=== PATIENT | male | born 1955 | race Caucasian/White ===

== ENCOUNTER → 2020-07-28 | Outpatient (CLI) | payer BC | END | disposition home or self-care (01) | LOC: LABPAT 12:52 | PROVIDERS: ATTEND Orthopaedic Surgery | DX: Z01.812 Encounter for preprocedural laboratory examination (principal) | CPT/HCPCS: 87070 ==

== ENCOUNTER 2020-08-03 10:59 | Day surgery (SDC) | payer BC ==
[2020-07-30 13:47] VITALS: BMI 35.7
--- NOTE | 2020-08-02 12:09 | HP ---
HISTORY AND PHYSICAL REASON FOR ADMISSION: Surgery 08/03/2020 Alfonso Nunes is a 64-year-old gentleman seen with symptomatic left knee osteoarthritis. We discussed options for treatment. He elected to proceed with left total knee arthroplasty. Consent was obtained. Medical clearance was provided by Dr. Rodriguez. Cardiac clearance was provided by Dr. Jeronimo. PAST MEDICAL HISTORY: Hypertension, cardiovascular disease. PAST SURGICAL HISTORY: Noncontributory. MEDICATIONS: Antihypertensive. ALLERGIES: None reported. SOCIAL HISTORY: He denies tobacco use. PHYSICAL EVALUATION OF THE LEFT KNEE: Range of motion is -2/3-120. Tenderness along the lateral joint line. Crepitus along the lateral patellofemoral compartments with range of motion. Pain with patellofemoral compression. Ligaments appear stable. Hip rotation without pain. Distal neurovascular exam is intact. Left knee radiographs revealed severe lateral, moderate patellofemoral compartment osteoarthritis. IMPRESSION: 1. Left knee osteoarthritis. 2. Hypertension. PLAN: Left total knee arthroplasty. Surgery 08/03/2020. MMODL / IJN: [id number] /
[~2020-08-03 10:59] MED LIST: ACETAMINOPHEN TAB 500 MG TAB PO PRN; HYDROmorphone 0.5 MG/0.5 ML SYRINGE IVP PRN; MELOXICAM 7.5 MG TAB PO PRN; ONDANSETRON 4 MG/2 ML VIAL IVP ONE; ROPIVACAINE/EPI/CLONIDINE/KET 50 ML SYRINGE MISCELLANE PRN; TRANEXAMIC ACID 1,000 MG in SODIUM CHLORIDE 0.9% 100 ML IVPB PRN
[2020-08-03] MEDS: LACTATED RINGERS 1,000 ML IV SCH ×2 (11:54→17:07)
[2020-08-03] MEDS ORDERED: DEXAMETHASONE SOD PHOSPHATE 4 MG/ML 1 ML VIAL IV ONE (12:03)
[2020-08-03] MEDS ORDERED: MIDAZOLAM 2 MG/2 ML VIAL IV ONE (12:27)
[2020-08-03] MEDS ORDERED: fentaNYL (PF) 50 MCG/ML 2 ML AMP IV ONE (12:27)
[2020-08-03] MEDS ORDERED: PROPOFOL 10 MG/ML 20 ML VIAL IV ONE (13:01)
[2020-08-03] MEDS ORDERED: KETAMINE 10 MG/ML 20 ML VIAL ONE (13:01)
[2020-08-03] MEDS ORDERED: MIDAZOLAM 2 MG/2 ML VIAL ONE (13:01)
[2020-08-03] MEDS ORDERED: SODIUM CHLORIDE 0.9% 100 ML BAG ONE (13:01)
[2020-08-03] MEDS ORDERED: ROPIVACAINE 5 MG/ML 30 ML VIAL ONE (13:01)
[2020-08-03] MEDS ORDERED: fentaNYL (PF) 50 MCG/ML 2 ML AMP ONE (13:01)
[2020-08-03] MEDS ORDERED: TRANEXAMIC ACID 1,000 MG/10 ML VIAL ONE (13:01)
[2020-08-03] MEDS ORDERED: ceFAZolin 1,000 MG in SODIUM CHLORIDE 0.9% 1,000 ML IRRIGATION ONE (13:34)
[2020-08-03] MEDS ORDERED: HYDROmorphone 1 MG/ML 1 ML SYRINGE IVP PRN (15:02)
[2020-08-03] MEDS ORDERED: HYDROmorphone 0.5 MG/0.5 ML SYRINGE IVP PRN (15:02)
[2020-08-03] MEDS ORDERED: HYDROcodone/APAP 5-325MG 1 EACH TAB PO PRN (15:02)
[2020-08-03] MEDS ORDERED: ONDANSETRON 4 MG/2 ML VIAL IVP PRN (15:02)
[2020-08-03] MEDS ORDERED: NALOXONE 0.4 MG/ML 1 ML VIAL IV PRN (15:02)
[2020-08-03] MEDS ORDERED: HYDROmorphone 0.2 MG/1 ML SYRINGE IVP PRN (15:02)
--- NOTE | 2020-08-03 15:02 | P.OP ---
Date of Procedure: 08/03/20 Preoperative Diagnosis: Left knee osteoarthritis Postoperative Diagnosis: Left knee osteoarthritis Procedure(s) Performed: Left total knee arthroplasty Implants: 1. Depuy attune size 7 left cruciate-retaining cemented femur 2. Depuy attune size 7 fixed-bearing cemented tibial baseplate 3. Depuy attune size 7 fixed-bearing cruciate retaining 5 mm polyethylene tibial insert 4. Depuy attune 41 mm all polyethylene cemented patella Anesthesia: regional (Adductor canal catheter, I pack block), spinal Surgeon: Ozzie Longo Skelp Processor #1: Burton Power Estimated Blood Loss (ml): 45 Pathology: other (bone) Condition: stable Disposition: PACU Indications for Procedure: 64-year-old patient seen with symptomatic left knee osteoarthritis. After treatment options were discussed, he elected to proceed with total knee ar throplasty. Operative Findings: see description of procedure Description of Procedure: Patient was taken to the operative suite after having an adductor canal catheter placed by the department of anesthesia as well as an I-pack block performed by the department of anesthesia for postoperative pain management. Patient underwent a spinal anesthetic by the department of anesthesia. Patient was given preoperative IV intake antibiotics and TXA. A well-padded tourniquet was placed about the left lower extremity. The lower extremity was then prepped and draped in the normal sterile orthopedic fashion. The extremity was elevated, a tourniquet was insufflated to 300. A standard anterior incision was made sharply through skin. Dissection was taken down through the subcutaneous soft tissues down to the extensor mechanism. A medial arthrotomy was performed, patella was everted and knee was flexed. There was advanced osteoarthritis noted. I introduced my distal intramedullary femoral drill. I then introduced the distal femoral cutting jig. Juan Manuel ESTRADA secured the cutting jig with 2 pins. I held retractors in position while Juan Manuel ESTRADA performed the distal femoral resection through the guide area we now removed her distal femoral cutting guide. We now placed our 4-in-1 femoral cutting block and positioned and it was secured with 2 pins by Juan Manuel ESTRADA while I held the block in position. The distal femoral finishing was now completed. A proximal tibial cutting guide was positioned. I held the guide in the appropriate position with both hands well Juan Manuel ESTRADA inserted stabilizing pins into the guide. Proximal tibial cut was made. We now placed a trial femoral component into position, along with an appropriate size tibial tray and insert. We now took the knee through range of motion and had full extension good flexion and good overall soft tissue balance noted. The patella was everted and stabilized with 2 towel clips held by Juan Manuel ESTRADA while I performed a flush with patellar quad tendon utilizing a fresh sawblade. We templated the patella, appropriate drill holes were made. An appropriate trial patella was positioned, knee was taken through full range of motion with the patella tracking very nicely. The trial patella was removed. Drill holes were made through the femoral component. All trial components were removed after marking off the appropriate rotation of the tibia. Retractors were now positioned along the proximal tibia. An appropriate keel punch was made with the appropriate size tibial guide by myself on Juan Manuel ESTRADA assisted by holding retractors. At this point appropriate size implants were chosen and opened. The joint was irrigated copiously with pulse lavage mechanical irrigation. The posterior capsule was infiltrated with local analgesic. The wound was irrigated with pulse lavage mechanical irrigation. We mixed antibiotic methylmethacrylate. We placed the knee into flexion. We placed multiple retractors assisted by Juan Manuel ESTRADA to expose the proximal tibia. Once the methyl methacrylate was ready, the tibial component was cemented into place removing any excess methylmethacrylate form by both myself and Juan Manuel ESTRADA. The femoral component was cemented into place removing the removing any excess methylmethacrylate performed by both myself and Juan Manuel ESTRADA. We then inserted the appropriate size polyethylene tibial insert. We made sure that it was locked into position. We took the knee into full extension, and then back in a flexion making sure we had removed any excess methylmethacrylate. The patellar component was then cemented down and secured with clamp. Excess methylmethacrylate removed. We kept the knee in full exten nora, patellar clamp in position until methylmethacrylate had hardened. Once it had hardened the patellar clamp was removed. The knee was taken through full range of motion. The patella tracked nicely. There was good soft tissue balancing. The tourniquet was now released. Additional hemostasis was achieved via electrocautery. A second gram of TXA was given. The wound again was irrigated with pulse lavage mechanical irrigation. The superficial soft tissues were infiltrated local analgesic. The extensor mechanism was repaired with Ethibond. We checked the repair with range of motion and it was stable. The subcutaneous soft tissues were repaired with Vicryl in layers. The skin was approximated with pernio/Dermabond. Sterile dressings were applied followed by loose web roll and Ned bandage. The patient was transferred to a bed, and taken to recovery in stable and satisfactory condition. Juan Manuel ESTRADA assisted with this complex procedure.
--- NOTE | 2020-08-03 15:17 | P.ANPRN ---
Procedure Note - Anesthesia - Nerve Block Performed Left Adductor Canal Infusion Time Out Performed: Yes (1225) Date of Procedure: 08/03/20 Procedure Start Time: 12:27 Procedure Stop Time: 12:32 Location of Patient: PreOp Indication: Acute Post-Operative Pain, Requested by Surgeon Specifically requested for management of pain by DrKamran: Ozzie Longo Sedation Type: Sedate with meaningful contact maintained Preparation: Sterile Prep Position: Supine Catheter Depth at Skin (cm): 9 Catheter: Indwelling Needle Types: Pajunk Needle Gauge: 21 Ultrasound used to visualize needle placement: Yes Ultrasound used to observe medication spread: Yes Injectate: 0.5% Ropivacaine (see comment for volume) (20cc) Blood Aspirated: No Pain Paresthesia on Injection Noted: No Resistance on Injection: Normal Image Stored and Saved: Yes Events: Uneventful and Well Tolerated Left iPack Single Time Out Performed: Yes (1225) Date of Procedure: 08/03/20 Procedure Start Time: 12:33 Procedure Stop Time: 12:37 Location of Patient: PreOp Indication: Acute Post-Operative Pain, Requested by Surgeon Specifically requested for management of pain by DrKamran: Ozzie Longo Sedation Type: Sedate with meaningful contact maintained Preparation: Sterile Prep Position: Supine Catheter: None Needle Types: Pajunk Needle Gauge: 21 Ultrasound used to visualize needle placement: Yes Ultrasound used to observe medication spread: Yes Injectate: 0.5% Ropivacaine (see comment for volume) (10cc + 10cc Nacl) Blood Aspirated: No Pain Paresthesia on Injection Noted: No Resistance on Injection: Normal Image Stored and Saved: Yes Events: Uneventful and Well Tolerated
[2020-08-03] MEDS ORDERED: ROPIVACAINE 0.2%-NS ON-Q PUMP 2 MG/ML EACH MISCELLANE ONE (15:20)
[2020-08-03] MEDS ORDERED: diphenhydrAMINE 50 MG/ML 1 ML VIAL IVP ONE ×2 (15:20)
[2020-08-03] MEDS: HYDROmorphone 1 MG/ML 1 ML SYRINGE IVP ONE ×2 (15:26→15:42)
--- NOTE | 2020-08-03 15:38 | XR ---
EXAMINATION TYPE: XR knee limited LT DATE OF EXAM: 08/03/2020 CLINICAL HISTORY: Left knee pain and arthritis status post total knee replacement. TECHNIQUE: Portable AP and crosstable lateral views of the left knee are obtained immediately postop eratively. COMPARISON: Outside left knee x-ray July 07, 2020. FINDINGS: Metallic hardware from total left knee arthroplasty is seen and appears satisfactory in al ignment and position. There is evidence of recent surgery with diffuse subcutaneous gas and soft tis pablo swelling noted. IMPRESSION: METALLIC HARDWARE FROM TOTAL LEFT KNEE ARTHROPLASTY IS SATISFACTORY IN ALIGNMENT.
[2020-08-03] MEDS ORDERED: SODIUM CHLORIDE 0.9% 1,000 ML IV ONE ×2 (15:52)
[2020-08-03] MEDS ORDERED: SENNOSIDES-DOCUSATE SODIUM 1 EACH TAB PO SCH (21:00)
[2020-08-03] MEDS: HYDROcodone/APAP 7.5-325MG 1 EACH TAB PO PRN (21:17)
[2020-08-04] MEDS: LACTATED RINGERS 1,000 ML IV SCH ×2 (01:59→09:11)
[2020-08-04] MEDS ORDERED: ENOXAPARIN 30 MG/0.3 ML SYRINGE SQ SCH (03:00)
[2020-08-04] MEDS: HYDROcodone/APAP 7.5-325MG 1 EACH TAB PO PRN ×2 (05:51→11:07)
[2020-08-04 08:14] VITALS: BP 114/73; PULSE 102; RESP 16; TEMP 98.5
[2020-08-04 10:25] LABS: Basophils # (A) 0.03 X 10*3/uL (0.00-0.10); Basophils % (A) 0.3 %; Eosinophils # (A) 0.02 X 10*3/uL (0.04-0.35); Eosinophils % (A) 0.2 %; HCT 42.6 % (39.6-50.0); HGB 14.3 g/dL (13.0-17.0); Lymphocytes # (A) 2.09 X 10*3/uL (0.90-5.00); Lymphocytes % (A) 17.7 %; MCH 31.4 pg (27.0-32.0); MCHC 33.6 g/dL (32.0-37.0); MCV 93.6 fL (80.0-97.0); Monocytes # (A) 1.28 X 10*3/uL (0.20-1.00); Monocytes % (A) 10.9 %; Neutrophils # (A) 8.33 X 10*3/uL (1.80-7.70); Neutrophils % (A) 70.6 %; Platelet Count 212 X 10*3/uL (140-440); RBC 4.55 X 10*6/uL (4.40-5.60); RDW 12.6 % (11.5-14.5); WBC 11.79 X 10*3/uL (4.50-10.00)
[2020-08-04 12:36] LABS: African American GFR (CKD) 82.4 (60.0-200.0); Albumin 3.9 g/dL (3.80-4.90); Albumin/Globulin Ratio 1.77 (1.60-3.17); Anion Gap 6.8 mmol/L (4.00-12.00); BUN/Creat Ratio 14.55 Ratio (12.00-20.00); Calcium 8.7 mg/dL (8.7-10.3); Carbon Dioxide 28.2 mmol/L (21.6-31.8); Globulin 2.2 g/dL (1.6-3.3); Non-African American GFR(CKD) 71.1 (60.0-200.0); Potassium 4.5 mmol/L (3.5-5.5); Total Bilirubin 0.7 mg/dL (0.2-1.2); Total Protein 6.1 g/dL (6.2-8.2)
--- NOTE | 2020-08-04 12:40 | P.DS ---
Providers Date of admission: 08/03/2020 Expected date of discharge: 08/04/20 Attending physician: Ozzie Longo Consults: 08/03/20 15:02 Consult Physician Routine Consulting Provider: Justin Murillo Consult Reason/Comments: Medical management Do you want consulting provider notified?: Yes Primary care physician: Carissa Rodriguez Hospital Course: Date of admission: 08/03/2020 Date of discharge: 08/04/2020 Admission diagnosis: Left knee osteoarthritis Discharge diagnosis: Same Attending physician: Dr. Longo Surgical procedures: Left total knee arthroplasty Brief history: Patient is a 64-year-old male with a history of progressive primary left knee osteoarthritis. At this point patient has failed conservative treatment measures and has opted to proceed with a elective left total knee arthroplasty. Hospital course: Details of patient's surgery can be found in operative report. Patient tolerated the procedure well and was subsequently transported to orthopedic floor. Patient's orthopeidc and medical care was provided daily. Patient had daily laboratory tests performed for evaluation of overall blood counts. Patient had daily physical therapy to include strengthening range of motion as well as education with walker ambulation. Patient was treated with Lovenox for their postoperative DVT prophylaxis during their inpatient stay. Patient was noted to have a relatively uneventful postoperative course. Patient reported satisfactory pain control with oral pain medications by postoperative day 1. Patient showed satisfactory progress with physical therapy. Patient moved steadily through the program and had no difficulty meeting the goals by postoperative day 1. Given patient's otherwise satisfactory course and having met physical therapy goals, plan is to discharge patient home on postoperative day 1. Discharge condition/disposition: Patient will be discharged home in stable condition. Discharge medications: Instructions are given on resumption of patient's normal daily medications per primary care recommendation, in addition patient will be prescribed Royal 7.5 mg/325 mg; Colace 100 mg; aspirin 81 mg.. Discharge instructions: 1. Wound care and infection precautions, keep incision dry and covered while showering, no lotions, creams, moisturizers. No soaking, tubs, pools, hottubs. Do not scrub over the incision. 2. Weight-bear as tolerated with walker / cane until follow-up. 3. Ice and elevate when necessary. Do not exceed 20 minutes per hour with ice pack. 4. Utilize compression sleeve until seen at first follow up appointment. 5. Visiting nursing care. 6. Home physical therapy including home CPM. 7. Pain meds and anticoagulants per prescription. 8. Pain medication has potential to cause constipation. Increase oral fluid and fiber intake. Contact primary care provider if you have not had a bowel movement within 48 hours after discharge 9. No anti-inflammatory medication until discussed at first post operative visit, this including Motrin, Aleve, Mobic, Diclofena. 10. Follow up in office at 2 weeks postop with Juan Manuel Power PA-C / Anders Nunes PA-C 11. Follow up with your primary care doctor 7-10 days after discharge. 12. Contact [facility] with any questions, . Assessment: Left knee osteoarthritis Procedures: Left total knee arthroplasty Patient Condition at Discharge: Good Plan - Discharge Summary Discharge Rx Participant: Yes New Discharge Prescriptions: New Aspirin [Adult Low Dose Aspirin EC] 81 mg PO BID #60 tablet. Docusate [Colace] 100 mg PO DAILY #30 capsule HYDROcodone/APAP 7.5-325MG [Royal 7.5] 1 each PO Q4-6H PRN #36 tab PRN Reason: Pain No Action Atorvastatin [Lipitor] 80 mg PO DAILY #30 tab Spironolactone [Aldactone] 25 mg PO DAILY #30 tab Otc Antacid 1 tab PO DAILY PRN PRN Reason: Acid Reflux Metoprolol Tartrate [Lopressor] 25 mg PO DAILY Losartan Potassium [Cozaar] 25 mg PO DAILY Discharge Medication List Atorvastatin [Lipitor] 80 mg PO DAILY #30 tab 10/09/14 [Rx] Spironolactone [Aldactone] 25 mg PO DAILY #30 tab 10/09/14 [Rx] Losartan Potassium [Cozaar] 25 mg PO DAILY 07/30/20 [History] Metoprolol Tartrate [Lopressor] 25 mg PO DAILY 07/30/20 [History] Otc Antacid 1 tab PO DAILY PRN 07/30/20 [History] Aspirin [Adult Low Dose Aspirin EC] 81 mg PO BID #60 tablet. 08/04/20 [Rx] Docusate [Colace] 100 mg PO DAILY #30 capsule 08/04/20 [Rx] HYDROcodone/APAP 7.5-325MG [Royal 7.5] 1 each PO Q4-6H PRN #36 tab 08/04/20 [Rx] Follow up Appointment(s)/Referral(s): [facility] [NON-STAFF] - (*Please call [facility] to arrange delivery of the Continous Passive Motion (CPM) machine. ) [facility], [NON-STAFF] - ([facility] will call to arrange your first physical therapy appointment which should be on 08/05/20.) Burton Power PAC [PHYSICIAN SAFETY COUNCIL DIRECTOR] - 2 Weeks Activity/Diet/Wound Care/Special Instructions: Orthopedic Discharge Instructions: 1. Wound care and infection precautions, [keep incision dry and covered while showering], no lotions, creams, moisturizers. No soaking, pools, hot tubs. Do not scrub over incision. 2. Weight-bear [as tolerated] with walker / cane until follow-up. 3. Ice and elevate when necessary. Do not exceed 20 minutes per hour with ice pack. 4. Utilize compression sleeve until seen at first follow up appointment. 5. Pain meds and anticoagulants per prescription. 6. Pain medication has potential to cause constipation. Increase oral fluid and fiber intake. Contact primary care provider if you have not had a bowel movement within 48 hours after discharge. 7. No anti-inflammatory medication until discussed at first post operative visit, this including Motrin, Aleve, Mobic, Diclofenac, [Aspirin]. 8. Follow up in office at 2 weeks postop with Juan Manuel Power PA-C / Anders Nunes PA-C 9. Follow up with your primary care doctor 7-10 days after discharge. 10. Contact [facility] with any questions, . Keep foam dressing on for 7-10 days. While showering, cover silver foam dressing was Saran wrap for plastic bag. Dressing may be removed after 7-10 days Discharge Disposition: HOME WITH HOME HEALTH SERVICES
--- NOTE | 2020-08-04 12:45 | P.PN ---
Subjective Progress Note Date: 08/04/20 Principal diagnosis: Left knee osteoarthritis Patient lying semirecumbent in bed. Patient is currently icing and elevating knee. He states some minimal pain in the anterior aspect of the lower extremity. He says he has been up to the bathroom. Has passed gas. Has eaten meals. He says this morning with physical therapy he walked up-and-down stairs and down the jackson with a walker and did well. He has been using incentive spirometer. Denies any chest pain, nausea/vomiting, shortness of breath, fever. Objective - Vital Signs Vital signs: Vital Signs Temp 98.5 F 08/04/20 08:00 Pulse 102 H 08/04/20 08:00 Resp 16 08/04/20 08:00 BP 114/73 08/04/20 08:00 Pulse Ox 93 L 08/04/20 08:00 Intake & Output 08/03/20 08/04/20 08/04/20 18:59 06:59 18:59 Intake Total 1051 Output Total 45 Balance 1006 Weight 120.8 kg Intake: IV 1051 Output: Estimated Blood Loss 45 Other: Voiding Method Toilet # Voids 2 - Exam : Incision is clean, dry, and intact. The silver foam tape is in good condition. There is minimal soft tissue swelling and ecchymosis surrounding the medial and lateral aspects of the incision. Calf is soft, no tenderness with palpation. Plantar flexion, dorsiflexion, EHL, FHL are intact. Sensory exam to light touch throughout the extremity is intact, dorsal pedis pulses 2+. - Labs CBC & Chem 7: 08/04/20 06:38 08/04/20 06:38 Labs: Abnormal Lab Results - Last 24 Hours (Table) 08/04/20 08/04/20 Range/Units 06:38 06:38 WBC 11.79 H (4.50-10.00) X 10*3/uL Neutrophils # 8.33 H (1.80-7.70) X 10*3/uL Monocytes # 1.28 H (0.20-1.00) X 10*3/uL Eosinophils # 0.02 L (0.04-0.35) X 10*3/uL Glucose 113 H (70-110) mg/dL Total Protein 6.1 L (6.2-8.2) g/dL Assessment and Plan Plan: Assessment: Postoperative day 1 status post left total knee arthroplasty Plan: 1. Continue with medical management 2. Pain management - stable at this time. Patient will go home with Ross 7.5 mg/325 mg. Take stool softener as needed. 3. Continue with physical therapy, including gait/stair training. 4. DVT prophylaxis - once home, take aspirin 81 mg twice a day 30 days 5. Discharge planning. 6. Anticipated discharge today, 08/04/2020. Time with Patient: Less than 30
--- NOTE | 2020-08-04 13:24 | P.PN ---
Progress Note - Text Anesthesia POD 1. Patient is status post [left TKR] under spinal anesthesia anesthesia with a left adductor canal catheter and a IPAK block placed for postoperative pain relief. With ropivacaine 0.2% running at 10 cc's per hour, the patient's VAS is (2, 4). Catheter site is clean dry and intact.
[2020-08-04] MEDS ORDERED: SPIRONOLACTONE 25 MG TAB PO SCH (13:45)
[2020-08-04] MEDS ORDERED: LOSARTAN 25 MG TAB PO SCH (13:45)
[2020-08-04] MEDS ORDERED: METOPROLOL TARTRATE 25 MG TAB PO SCH (13:45)
[2020-08-04] MEDS ORDERED: ATORVASTATIN 80 MG TAB PO SCH (13:45)
[2020-08-04] MEDS ORDERED: FAMOTIDINE 20 MG TAB PO SCH (14:00)
--- NOTE | 2020-08-05 13:15 | P.PN ---
Progress Note - Text Progress Note Date: 08/05/20 This is 64-year-old male patient of Dr. Rodriguez. Patient presented for an elective left total knee arthroplasty. Patient was seen briefly by primary care team. Med rec was completed but a full consult was not completed due to 16 hour stay.
== END 2020-08-04 14:35 | disposition home health service (06) ==
LOC: OR 10:59 → 4SSUR 14:52 → OR 08-04 14:35
PROVIDERS: ATTEND Orthopaedic Surgery
DX: M17.12 Unilateral primary osteoarthritis, left knee (principal); I10 Essential (primary) hypertension; I42.8 Other cardiomyopathies; E78.5 Hyperlipidemia, unspecified; E66.3 Overweight; Z72.0 Tobacco use; Z79.899 Other long term (current) drug therapy; Z88.8 Allergy status to other drugs, medicaments and biological substances
CPT/HCPCS: 97110; 97161; 64999; 64448; 76942; 80053; 85025; 88300; 87635; 73560; 27447; C1776; C1713; J2250; J1200; J1100; J0690 ×3; J2405 ×2; J3010; J1650; J1170 ×3; J2795 ×2; J2704

== ENCOUNTER → 2021-03-02 | Outpatient (CLI) | payer BC ==
[2021-03-02 11:16] LABS: Basophils # (A) 0.1 k/uL (0-0.2); Basophils % (A) 1 %; Eosinophils # (A) 0.3 k/uL (0-0.7); Eosinophils % (A) 4 %; HCT 44.6 % (39.0-53.0); HGB 15.2 gm/dL (13.0-17.5); Lymphocytes # (A) 2.6 k/uL (1.0-4.8); Lymphocytes % (A) 39 %; MCH 32.1 pg (25.0-35.0); MCHC 34.2 g/dL (31.0-37.0); MCV 93.8 fL (80.0-100.0); Monocytes # (A) 0.5 k/uL (0-1.0); Monocytes % (A) 8 %; Neutrophils # (A) 3.1 k/uL (1.3-7.7); Neutrophils % (A) 46 %; Platelet Count 206 k/uL (150-450); RBC 4.75 m/uL (4.30-5.90); RDW 12.8 % (11.5-15.5); WBC 6.7 k/uL (3.8-10.6)
[2021-03-02 11:21] LABS: Prothrombin Time 10.4 sec (9.0-12.0)
[2021-03-02 11:24] LABS: Potassium 4.7 mmol/L (3.5-5.1)
== END | disposition home or self-care (01) ==
LOC: LABPAT 10:03
PROVIDERS: ATTEND Orthopaedic Surgery
DX: Z22.322 Carrier or suspected carrier of Methicillin resistant Staphylococcus aureus (principal); M17.11 Unilateral primary osteoarthritis, right knee
CPT/HCPCS: 36415; 80051; 85025; 85610; 87070

== ENCOUNTER 2021-03-08 13:26 | Day surgery (SDC) | payer BC ==
[2021-03-01 13:58] VITALS: BMI 35.5
--- NOTE | 2021-03-07 12:51 | HP ---
HISTORY AND PHYSICAL REASON FOR ADMISSION: Surgery scheduled for 03/08/2021 HISTORY OF PRESENT ILLNESS: Alfonso Nunes is a 65-year-old gentleman seen with symptomatic right knee osteoarthritis. We discussed options for treatment. He elected to proceed with right total knee arthroplasty. Consent regarding the procedure was obtained. Medical clearance was provided by Dr. Carissa Rodriguez. PAST MEDICAL HISTORY: Hypertension, hyperlipidemia. PAST SURGICAL HISTORY: Left total knee arthroplasty. MEDICATIONS: Atorvastatin, losartan, metoprolol, omeprazole. ALLERGIES: LISINOPRIL. SOCIAL HISTORY: Denies tobacco use. PHYSICAL EVALUATION OF THE RIGHT KNEE: Range of motion is -2/3-130. Tenderness medial joint line. Crepitus medial patellofemoral compartments with range of motion. Pain with patellofemoral compression. Ligaments stable. Hip rotation without pain. Distal neurovascular exam intact. RADIOGRAPHS: Radiographs of the right knee revealed severe osteoarthritic changes. IMPRESSION: 1. Right knee osteoarthritis. 2. Hypertension. 3. Hyperlipidemia. PLAN: Right total knee arthroplasty. Surgery is scheduled for 03/08/2021. MMODL / IJN: [id number] /
[~2021-03-08 13:26] MED LIST changes: +DEXAMETHASONE SOD PHOSPHATE 4 MG/ML 1 ML VIAL IV ONE; +LIDOCAINE 1% (10MG/ML) FOR IV START INTRADERMA PRN; +MIDAZOLAM 2 MG/2 ML VIAL IV PRN
[2021-03-08] MEDS: LACTATED RINGERS 1,000 ML IV SCH ×2 (14:18→20:59)
[2021-03-08] MEDS ORDERED: fentaNYL (PF) 50 MCG/ML 2 ML AMP IV ONE (14:38)
[2021-03-08] MEDS ORDERED: MIDAZOLAM 2 MG/2 ML VIAL ONE (15:13)
[2021-03-08] MEDS ORDERED: fentaNYL (PF) 50 MCG/ML 2 ML AMP ONE (15:13)
[2021-03-08] MEDS ORDERED: ROPIVACAINE 5 MG/ML 30 ML VIAL ONE (15:13)
[2021-03-08] MEDS ORDERED: SODIUM CHLORIDE 0.9% 100 ML BAG ONE (15:13)
[2021-03-08] MEDS ORDERED: SODIUM CHLORIDE 0.9% (PF) 10 ML VIAL ONE (15:13)
[2021-03-08] MEDS ORDERED: KETAMINE 10 MG/ML 20 ML VIAL ONE (15:13)
[2021-03-08] MEDS ORDERED: TRANEXAMIC ACID 1,000 MG/10 ML VIAL ONE (15:13)
[2021-03-08] MEDS ORDERED: PROPOFOL 10 MG/ML 20 ML VIAL IV ONE (15:13)
--- NOTE | 2021-03-08 16:28 | P.ANPRN ---
Procedure Note - Anesthesia - Nerve Block Performed Right Adductor Canal Time Out Performed: Yes (14:37) Date of Procedure: 03/08/21 Procedure Start Time: 14:37 Procedure Stop Time: 14:49 Location of Patient: PreOp Indication: Acute Post-Operative Pain, Requested by Surgeon (Dr Longo) Sedation Type: Sedate with meaningful contact maintained Preparation: Sterile Prep, Sterile Dressing Position: Supine Catheter: Indwelling Needle Types: Pajunk Needle Gauge: 21 Ultrasound used to visualize needle placement: Yes Ultrasound used to observe medication spread: Yes Injectate: 0.5% Ropivacaine (see comment for volume) (15cc) Blood Aspirated: No Pain Paresthesia on Injection Noted: No Resistance on Injection: Normal Image Stored and Saved: Yes Events: Uneventful and Well Tolerated
--- NOTE | 2021-03-08 16:30 | P.ANPRN ---
Procedure Note - Anesthesia - Nerve Block Performed Right iPack Time Out Performed: Yes Date of Procedure: 03/08/21 Procedure Start Time: 14:50 Procedure Stop Time: 14:58 Location of Patient: PreOp Indication: Acute Post-Operative Pain, Requested by Surgeon (Dr Longo) Sedation Type: Sedate with meaningful contact maintained Preparation: Sterile Prep Position: Supine Catheter: None Needle Types: Pajunk Needle Gauge: 21 Ultrasound used to visualize needle placement: Yes Ultrasound used to observe medication spread: Yes Injectate: 0.5% Ropivacaine (see comment for volume) (15cc + 5 cc PF Normal saline) Blood Aspirated: No Pain Paresthesia on Injection Noted: No Resistance on Injection: Normal Image Stored and Saved: Yes Events: Uneventful and Well Tolerated
[2021-03-08] MEDS ORDERED: ROPIVACAINE 0.2%-NS ON-Q PUMP 1,090 MG, EMPTY PAIN BALL 1 EACH MISCELLANE PRN ×2 (17:00→17:01)
[2021-03-08] MEDS ORDERED: NALOXONE 0.4 MG/ML 1 ML VIAL IV PRN (17:05)
[2021-03-08] MEDS ORDERED: HYDROmorphone 0.2 MG/1 ML SYRINGE IVP PRN (17:05)
[2021-03-08] MEDS ORDERED: HYDROmorphone 0.5 MG/0.5 ML SYRINGE IVP PRN (17:05)
[2021-03-08] MEDS ORDERED: HYDROmorphone 1 MG/ML 1 ML SYRINGE IVP PRN (17:05)
[2021-03-08] MEDS ORDERED: HYDROcodone/APAP 5-325MG 1 EACH TAB PO PRN (17:05)
[2021-03-08] MEDS ORDERED: ONDANSETRON 4 MG/2 ML VIAL IVP PRN (17:05)
--- NOTE | 2021-03-08 17:05 | P.OP ---
Date of Procedure: 03/08/21 Preoperative Diagnosis: Right knee osteoarthritis Postoperative Diagnosis: Right knee osteoarthritis Procedure(s) Performed: Right total knee arthroplasty Implants: 1. Depuy attune size 7 right cruciate retaining cemented femur 2. Depuy attune size 7 fixed bearing cemented tibial baseplate 3. Depuy attune size 7 fixed bearing cruciate retaining 5 mm polyethylene tibial insert 4. Depuy attune 41 mm all polyethylene cemented patella Anesthesia: regional (Adductor canal catheter, Ipack block), spinal Surgeon: Ozzie Longo Plug Cutter #1: Burton Power Estimated Blood Loss (ml): 45 Pathology: other (Bone) Condition: stable Disposition: PACU Indications for Procedure: 65-year-old patient seen with symptomatic right knee osteoarthritis. After treatment options were discussed, he elected to proceed with right total knee arthroplasty. Operative Findings: see description of procedure Description of Procedure: Patient was taken to the operative suite after having an adductor canal catheter placed by the department of anesthesia as well as an Ipack block for postoperative pain management. Patient underwent a spinal anesthetic by the department of anesthesia. Patient was given preoperative IV intake antibiotics and TXA. A well-padded tourniquet was placed about the right lower extremity. The lower extremity was then prepped and draped in the normal sterile orthopedic fashion. The extremity was elevated, a tourniquet was insufflated to 300. A standard anterior incision was made sharply through skin. Dissection was taken down through the subcutaneous soft tissues down to the extensor mechanism. A medial arthrotomy was performed, patella was everted and knee was flexed. There was advanced osteoarthritis noted. I introduced my distal intramedullary femoral drill. I then introduced the distal femoral cutting jig. Juan Manuel ESTRADA secured the cutting jig with 2 pins. I held retractors in position while Juan Manuel ESTRADA performed the distal femoral resection through the guide area we now removed her distal femoral cutting guide. We now placed our 4-in-1 femoral cutting block and positioned and it was secured with 2 pins by Juan Manuel ESTRADA while I held the block in position. The distal femoral finishing was now completed. A proximal tibial cutting guide was positioned. I held the guide in the appropriate position with both hands well Juan Manuel ESTRADA inserted stabilizing pins into the guide. Proximal tibial cut was made. We now placed a trial femoral component into position, along with an appropriate size tibial tray and insert. We now took the knee through range of motion and had full extension good flexion and good overall soft tissue balance noted. The patella was everted and stabilized with 2 towel clips held by Juan Manuel ESTRADA while I performed a flush with patellar quad tendon utilizing a fresh sawblade. We templated the patella, appropriate drill holes were made. An appropriate trial patella was positioned, knee was taken through full range of motion with the patella tracking very nicely. The trial patella was removed. Drill holes were made through the femoral component. All trial components were removed after marking off the appropriate rotation of the tibia. Retractors were now positioned along the proximal tibia. An appropriate keel punch was made with the appropriate size tibial guide by myself on Juan Manuel ESTRADA assisted by holding retractors. At this point appropriate size implants were chosen and opened. The joint was irrigated copiously with pulse lavage mechanical irrigation. The posterior capsule was infiltrated with local analgesic. The wound was irrigated with pulse lavage mechanical irrigation. We mixed antibiotic methylmethacrylate. We placed the knee into flexion. We placed multiple retractors assisted by Juan Manuel ESTRADA to expose the proximal tibia. Once the methyl methacrylate was ready, the tibial component was cemented into place removing any excess methylmethacrylate form by both myself and Juan Manuel ESTRADA. The femoral component was cemented into place removing the removing any excess methylmethacrylate performed by both myself and Juan Manuel ESTRADA. We then inserted the appropriate size polyethylene tibial insert. We made sure that it was locked into position. We took the knee into full extension, and then back in a flexion making sure we had removed any excess methylmethacrylate. The patellar component was then cemented down and secured with clamp. Excess methylmethacrylate removed. We kept the knee in full extension, patellar clamp in position until methylmethacrylate had hardened. Once it had hardened the patellar clamp was removed. The knee was taken through full range of motion. The patella tracked nicely. There was good soft tissue balancing. The tourniquet was now released. Additional hemostasis was achieved via electrocautery. A second gram of TXA was given. The wound again was irrigated with pulse lavage mechanical irrigation. The superficial soft tissues were infiltrated local analgesic. The extensor mechanism was repaired with Ethibond. We checked the repair with range of motion and it was stable. The subcutaneous soft tissues were repaired with Vicryl in layers. The skin was approximated with pernio/Dermabond. Sterile dressings were applied followed by loose web roll and Ned bandage. The patient was transferred to a bed, and taken to recovery in stable and satisfactory condition. Juan Manuel ESTRADA assisted with this complex procedure.
--- NOTE | 2021-03-08 17:42 | XR ---
EXAMINATION TYPE: XR knee limited RT DATE OF EXAM: 03/08/2021 CLINICAL HISTORY: Right knee pain and arthritis status post total knee replacement. TECHNIQUE: Portable AP and crosstable lateral views of the right knee are obtained immediately posto peratively. COMPARISON: Radiograph 11/03/2020 FINDINGS: Metallic hardware from total right knee arthroplasty is seen and appears satisfactory in a lignment and position. There is evidence of recent surgery with diffuse subcutaneous gas. IMPRESSION: METALLIC HARDWARE FROM TOTAL RIGHT KNEE ARTHROPLASTY IS SATISFACTORY IN ALIGNMENT.
[2021-03-08] MEDS ORDERED: SENNOSIDES-DOCUSATE SODIUM 1 EACH TAB PO SCH (21:00)
[2021-03-08] MEDS: ceFAZolin 3 GM in SODIUM CHLORIDE 0.9% 100 ML IVPB SCH (23:55)
[2021-03-08] MEDS: HYDROcodone/APAP 7.5-325MG 1 EACH TAB PO PRN (23:55)
[2021-03-09] MEDS: LACTATED RINGERS 1,000 ML IV SCH ×3 (00:22→06:01)
[2021-03-09] MEDS: ceFAZolin 3 GM in SODIUM CHLORIDE 0.9% 100 ML IVPB SCH (06:01)
[2021-03-09] MEDS: HYDROcodone/APAP 7.5-325MG 1 EACH TAB PO PRN ×2 (06:02→11:24)
--- NOTE | 2021-03-09 07:14 | P.PN ---
Progress Note - Text The patient is status post right adductor canal catheter placement. The catheter was placed for postoperative pain control, status post total right knee arthroplasty. Ropivacaine 0.2% is infusing at 8 mLs per hour. The patient has no complaints of right lower extremity numbness or weakness. Patient's VAS score is 1 -10. Assessment: Patient's adductor canal catheter is in place and working appropriately. Plan: continue infusion and adjust it as needed.
[2021-03-09] MEDS ORDERED: ENOXAPARIN 30 MG/0.3 ML SYRINGE SQ SCH (09:00)
[2021-03-09 09:19] LABS: Basophils # (A) 0.01 X 10*3/uL (0.00-0.10); Basophils % (A) 0.1 %; Eosinophils # (A) 0.01 X 10*3/uL (0.04-0.35); Eosinophils % (A) 0.1 %; HCT 37.8 % (39.6-50.0); HGB 12.7 g/dL (13.0-17.0); Lymphocytes # (A) 1.62 X 10*3/uL (0.90-5.00); MCH 31.4 pg (27.0-32.0); MCHC 33.6 g/dL (32.0-37.0); MCV 93.3 fL (80.0-97.0); Mean Platelet Volume 12.2 fL (9.5-12.2); Monocytes # (A) 1.08 X 10*3/uL (0.20-1.00); Neutrophils # (A) 8.07 X 10*3/uL (1.80-7.70); Neutrophils % (A) 74.5 %; Platelet Count 195 X 10*3/uL (140-440); RBC 4.05 X 10*6/uL (4.40-5.60); WBC 10.82 X 10*3/uL (4.50-10.00)
--- NOTE | 2021-03-09 12:19 | P.DS ---
Providers Date of admission: 03/08/2021 Expected date of discharge: 03/09/21 Attending physician: Ozzie Longo Consults: 03/08/21 17:05 Consult Physician Routine Consulting Provider: Forrest Scott Consult Reason/Comments: Medical management Do you want consulting provider notified?: Yes Primary care physician: Carissa Rodriguez Hospital Course: Date of admission: 03/08/2021 Date of discharge: 03/09/2021 Admission diagnosis: Right knee osteoarthritis Discharge diagnosis: Same Attending physician: Dr. Longo Surgical procedures: Right total knee arthroplasty Brief history: Patient is a 65-year-old male with a history of progressive primary right knee arthritis. At this point patient has failed conservative treatment measures and has opted to proceed with a elective right total knee arthroplasty. Hospital course: Details of patient's surgery can be found in operative report. Patient tolerated the procedure well and was subsequently transported to orthopedic floor. Patient's orthopeidc and medical care was provided daily. Patient had daily laboratory tests performed for evaluation of overall blood counts. Patient had daily physical therapy to include strengthening range of motion as well as education with walker ambulation. Patient was treated with Lovenox for their postoperative DVT prophylaxis during their inpatient stay. Patient was noted to have a relatively uneventful postoperative course. Patient reported satisfactory pain control with oral pain medications by postoperative day 1. Patient showed satisfactory progress with physical therapy. Patient moved steadily through the program and had no difficulty meeting the goals by postoperative day 1. Given patient's otherwise satisfactory course and having met physical therapy goals, plan is to discharge patient home on postoperative day 1. Discharge condition/disposition: Patient will be discharged home in stable condition. Discharge medications: Instructions are given on resumption of patient's normal daily medications per primary care recommendation, in addition patient will be prescribed [place] 7.5 mg/325mg; Colace; aspirin 81 mg twice a day 30 days. Discharge instructions: 1. Wound care and infection precautions, keep incision dry and covered while showering, no lotions, creams, moisturizers. No soaking, tubs, pools, hottubs. Do not scrub over the incision. 2. Weight-bear as tolerated with walker / cane until follow-up. 3. Ice and elevate when necessary. Do not exceed 20 minutes per hour with ice pack. 4. Utilize compression sleeve until seen at first follow up appointment. 5. Visiting nursing care. 6. Home physical therapy including home CPM. 7. Pain meds and anticoagulants per prescription. 8. Pain medication has potential to cause constipation. Increase oral fluid and fiber intake. Contact primary care provider if you have not had a bowel movement within 48 hours after discharge 9. No anti-inflammatory medication until discussed at first post operative visit, this including Motrin, Aleve, Mobic, Diclofenac. 10. Follow up in office at 2 weeks postop with Juan Manuel Power PA-C / Anders Nunes PA-C 11. Follow up with your primary care doctor 7-10 days after discharge. 12. Contact [facility] with any questions, . Silver foam dressing may be removed on 03/15/2021. Keep incision clean, dry. cover with saran wrap while showering. Meds: [place] 7.5mg/325 mg; Colace 100 mg; Aspirin 81 mg BID x 30 days Assessment: Right knee osteoarthritis Procedures: Right total knee arthroplasty Patient Condition at Discharge: Good Plan - Discharge Summary Discharge Rx Participant: No New Discharge Prescriptions: New Docusate [Colace] 100 mg PO DAILY #30 capsule HYDROcodone/APAP 7.5-325MG [[place] 7.5] 1 each PO Q6HR PRN #36 tab PRN Reason: Pain No Action Atorvastatin [Lipitor] 80 mg PO DAILY #30 tab Omeprazole 20 mg PO DAILY PRN PRN Reason: spicy food Ibuprofen 200 - 800 mg PO Q8H PRN PRN Reason: Pain Metoprolol Tartrate [Lopressor] 25 mg PO DAILY Losartan Potassium [Cozaar] 25 mg PO DAILY Discharge Medication List Atorvastatin [Lipitor] 80 mg PO DAILY #30 tab 10/09/14 [Rx] Losartan Potassium [Cozaar] 25 mg PO DAILY 07/30/20 [History] Metoprolol Tartrate [Lopressor] 25 mg PO DAILY 07/30/20 [History] Ibuprofen 200 - 800 mg PO Q8H PRN 03/01/21 [History] Omeprazole 20 mg PO DAILY PRN 03/01/21 [History] Docusate [Colace] 100 mg PO DAILY #30 capsule 03/09/21 [Rx] HYDROcodone/APAP 7.5-325MG [[place] 7.5] 1 each PO Q6HR PRN #36 tab 03/09/21 [Rx] Follow up Appointment(s)/Referral(s): Carissa Rodriguez MD [Primary Care Provider] - [facility],Equipment [NON-STAFF] - As Needed (Continuous Passive Motion knee machine through [facility]) [facility], [NON-STAFF] - As Needed Burton Power PAC [PHYSICIAN TELEGRAPH SERVICE CLERK] - 03/17/21 2:40 pm Activity/Diet/Wound Care/Special Instructions: Orthopedic Discharge Instructions: 1. Wound care and infection precautions, keep incision dry and covered while showering, no lotions, creams, moisturizers. No soaking, pools, hot tubs. Do not scrub over incision. 2. Weight-bear as tolerated with walker / cane until follow-up. 3. Ice and elevate when necessary. Do not exceed 20 minutes per hour with ice pack. 4. Utilize compression sleeve until seen at first follow up appointment. 5. Pain meds and anticoagulants per prescription. 6. Pain medication has potential to cause constipation. Increase oral fluid and fiber intake. Contact primary care provider if you have not had a bowel movement within 48 hours after discharge. 7. No anti-inflammatory medication until discussed at first post operative visit, this including Motrin, Aleve, Mobic, Diclofenac. 8. Follow up in office at 2 weeks postop with Juan Manuel Power PA-C/Anders Nunes PA-C 9. Follow up with your primary care doctor 7-10 days after discharge. 10. Contact [facility] with any questions, . Wound care instructions: 1. Okay to remove foam dressing on 03/15/2021 2. Please keep incision covered and dry while showering both before and after removal of foam dressing Discharge Disposition: HOME WITH HOME HEALTH SERVICES
--- NOTE | 2021-03-09 12:19 | P.PN ---
Subjective Progress Note Date: 03/09/21 Principal diagnosis: right knee osteoarthritis Patient seen at bedside this morning resting comfortably lying semirecumbent in bed. Patient says he was walking around the room last night using walker. Patient says he does have walker at home to use. Patient says he would like to go home today. Patient says most of the pain he is having he thinks is due to muscle spasms in his upper leg. Patient says he has been using incentive spirometer. Patient says he has not had bowel movement yet. Patient denies chest pain, fever, shortness of breath, nausea, vomiting, change in vision, loss of bowel/bladder control. Objective - Vital Signs Vital signs: Vital Signs Temp 97.7 F 03/09/21 07:57 Pulse 58 L 03/09/21 07:57 Resp 16 03/09/21 07:57 BP 122/71 03/09/21 07:57 Pulse Ox 98 03/09/21 07:57 Intake & Output 03/08/21 03/09/21 03/09/21 18:59 06:59 18:59 Intake Total 1050 Output Total 45 Balance 1005 Weight 122.6 kg 122.6 kg Intake: IV 1050 Output: Estimated Blood Loss 45 Other: # Voids 1 - Exam Right knee: Incision is clean, dry, and intact. The silver foam dressing is in good conditi on. There is minimal soft tissue swelling and ecchymosis surrounding the medial and lateral aspects of the incision. Calf is soft, no tenderness with palpation. Plantar flexion, dorsiflexion, EHL, FHL are intact. Sensory exam to light touch throughout the extremity is intact, dorsal pedis pulses 2+. - Labs CBC & Chem 7: 03/09/21 05:36 Assessment and Plan Assessment: Right knee osteoarthritis Postoperative day 1 status post right total knee arthroplasty Plan: 1. Right knee osteoarthritis - right total knee arthroplasty performed yesterday, 03/08/2021. Patient stable at bedside this point. Plan for discharge home today with services 2. Appreciate medical management 3. Pain management - [place]; Home with [place] 7.5 mg/325mg 4. DVT prophylaxis- Lovenox in hospital. Patient has aspirin at home. Patient is to take 81 mg twice a day 30 days 5. GI prophylaxis - senna in hospital. Patient going home with Colace. 6. PT/OT - weightbearing as tolerated with walker for assistance 7. Encourage incentive spirometer use 8. Discharge planning - Home today with health services. Time with Patient: Less than 30
[2021-03-09 14:05] VITALS: BP 177/96; PULSE 81; RESP 17; TEMP 97.6
--- NOTE | 2021-03-09 14:37 | P.CONS ---
History of Present Illness - Reason for Consult Leukocytosis - History of Present Illness Patient is admitted for right knee arthroplasty patient is clinically doing well patient doesn't have any fever chills patient doesn't have any dysuria denied any cough. Patient does have some leukocytosis which is reactive secondary to surgery patient does take metoprolol and losartan. REVIEW OF SYSTEMS: CONSTITUTIONAL: No fever, no malaise, no fatigue. HEENT: No recent visual problems or hearing problems. Denied any sore throat. CARDIOVASCULAR: No chest pain, orthopnea, PND, no palpitations, no syncope. PULMONARY: No shortness of breath, no cough, no hemoptysis. GASTROINTESTINAL: No diarrhea, no nausea, no vomiting, no abdominal pain. NEUROLOGICAL: No headaches, no weakness, no numbness. HEMATOLOGICAL: Denies any bleeding or petechiae. GENITOURINARY: Denies any burning micturition, frequency, or urgency. MUSCULOSKELETAL/RHEUMATOLOGICAL: Denies any joint pain, swelling, or any muscle pain. ENDOCRINE: Denies any polyuria or polydipsia. The rest of the 14-point review of systems is negative. PHYSICAL EXAMINATION: GENERAL: The patient is alert and oriented x3, not in any acute distress. Well developed, well nourished. HEENT: Pupils are round and equally reacting to light. EOMI. No scleral icterus. No conjunctival pallor. Normocephalic, atraumatic. No pharyngeal erythema. No thyromegaly. CARDIOVASCULAR: S1 and S2 present. No murmurs, rubs, or gallops. PULMONARY: Chest is clear to auscultation, no wheezing or crackles. ABDOMEN: Soft, nontender, nondistended, normoactive bowel sounds. No palpable organomegaly. MUSCULOSKELETAL: No joint swelling or deformity. EXTREMITIES: No cyanosis, clubbing, or pedal edema. NEUROLOGICAL: Gross neurological examination did not reveal any focal deficits. SKIN: No rashes. Assessment and plan -Leukocytosis reactive without any evidence of infection at this time no need for antibiotics patient need to continue incentive spirometry -Right knee osteoarthritis status post right knee arthroplasty pain management due to prophylaxis per primary service -Hypertension: Patient can continue his home medications unless his blood pressure is low in the perioperative period at home, in this situation patient was asked to hold off on losartan for couple days -Hyperlipidemia -Hypertension -Gastroesophageal reflux disease Past Medical History Past Medical History: GERD/Reflux, Hyperlipidemia, Hypertension, Osteoarthritis (OA) Additional Past Medical History / Comment(s): Hypertension and Hyperlipidemia well controlled with current medical therapy. Has received 2 Covid Vaccines. History of Any Multi-Drug Resistant Organisms: None Reported Past Surgical History: Appendectomy, Cholecystectomy, Joint Replacement Additional Past Surgical History / Comment(s): Left corneal transplant. Past Anesthesia/Blood Transfusion Reactions: No Reported Reaction Additional Past Anesthesia/Blood Transfusion Reaction / Comm: no hx blood transfusion Past Psychological History: No Psychological Hx Reported Smoking Status: Never smoker Past Alcohol Use History: Rare Additional Past Alcohol Use History / Comment(s): "Smoked briefly, quit a long, long time ago." Past Drug Use History: None Reported - Past Family History Mother Family Medical History: No Reported History Father Family Medical History: Cancer Additional Family Medical History / Comment(s): Colon cancer. Medications and Allergies Home Medications Medication Instructions Recorded Confirmed Type Atorvastatin [Lipitor] 80 mg PO DAILY #30 tab 10/09/14 03/08/21 Rx Losartan Potassium [Cozaar] 25 mg PO DAILY 07/30/20 03/08/21 History Metoprolol Tartrate [Lopressor] 25 mg PO DAILY 07/30/20 03/08/21 History Ibuprofen 200 - 800 mg PO Q8H PRN 03/01/21 03/08/21 History Omeprazole 20 mg PO DAILY PRN 03/01/21 03/08/21 History Aspirin 81 mg PO BID #60 tab 03/09/21 Rx Docusate [Colace] 100 mg PO DAILY #30 capsule 03/09/21 Rx HYDROcodone/APAP 7.5-325MG [[place] 1 each PO Q6HR PRN #36 tab 03/09/21 Rx 7.5] Allergies Allergy/AdvReac Type Severity Reaction Status Date / Time No Known Allergies Allergy Verified 03/08/21 13:48 Physical Exam Vitals: Vital Signs Temp Pulse Resp BP BP Pulse Ox 03/09/21 14:00 97.6 F 81 17 177/96 97 03/09/21 08:00 58 L 16 03/09/21 07:57 97.7 F 58 L 16 122/71 98 03/09/21 02:13 98.5 F 85 16 127/73 92 L 03/08/21 19:40 98.4 F 48 L 16 162/77 98 03/08/21 18:45 51 L 14 125/80 97 03/08/21 18:30 55 L 14 153/71 96 03/08/21 18:15 56 L 14 127/72 96 03/08/21 18:00 53 L 14 127/72 98 03/08/21 17:45 62 14 111/61 95 03/08/21 17:30 56 L 16 108/56 100 03/08/21 17:19 97.7 F 54 L 16 106/56 98 Intake and Output 03/08/21 03/09/21 03/09/21 22:59 06:59 14:59 Intake Total 850 236 Output Total 45 Balance 805 236 Intake: IV 850 Oral 236 Output: Estimated Blood Loss 45 Other: # Voids 1 Weight 122.6 kg Results CBC & Chem 7: 03/09/21 05:36 Labs: Abnormal Lab Results - Last 24 Hours (Table) 03/09/21 Range/Units 05:36 WBC 10.82 H (4.50-10.00) X 10*3/uL RBC 4.05 L (4.40-5.60) X 10*6/uL Hgb 12.7 L (13.0-17.0) g/dL Hct 37.8 L (39.6-50.0) % Neutrophils # 8.07 H (1.80-7.70) X 10*3/uL Monocytes # 1.08 H (0.20-1.00) X 10*3/uL Eosinophils # 0.01 L (0.04-0.35) X 10*3/uL
== END 2021-03-09 14:27 | disposition home health service (06) ==
LOC: OR 13:26 → 4SSUR 19:01 → OR 03-09 14:27
PROVIDERS: ATTEND Orthopaedic Surgery
DX: M17.11 Unilateral primary osteoarthritis, right knee (principal); Z20.822 Contact with and (suspected) exposure to COVID-19
CPT/HCPCS: 27447; 87635; 73560; J2250; J1100; J0690; J2405; J3010; J1170 ×2; J2795; 64448; 64999; 76942; 85025

== ENCOUNTER 2023-10-23 06:16 | Day surgery (SDC) | payer MEDICARE, BC ==
[2023-10-18 13:17] VITALS: BMI 33.5
[~2023-10-23 06:16] MED LIST changes: -ACETAMINOPHEN TAB 500 MG TAB PO PRN; +ALPRAZolam 0.25 MG TAB PO PRN; +ALPRAZolam 0.5 MG TAB PO PRN; +ASPIRIN 325 MG TAB PO STA; -DEXAMETHASONE SOD PHOSPHATE 4 MG/ML 1 ML VIAL IV ONE; -HYDROmorphone 0.5 MG/0.5 ML SYRINGE IVP PRN; -LIDOCAINE 1% (10MG/ML) FOR IV START INTRADERMA PRN; -MELOXICAM 7.5 MG TAB PO PRN; -MIDAZOLAM 2 MG/2 ML VIAL IV PRN; +NITROGLYCERIN SL TABS 0.4 MG TAB SUBLINGUAL PRN; -ONDANSETRON 4 MG/2 ML VIAL IVP ONE; -ROPIVACAINE/EPI/CLONIDINE/KET 50 ML SYRINGE MISCELLANE PRN; +SODIUM CHLORIDE 0.9% 1,000 ML in EMPTY BAG 1 BAG IV SCH; -TRANEXAMIC ACID 1,000 MG in SODIUM CHLORIDE 0.9% 100 ML IVPB PRN
[2023-10-23] MEDS: SODIUM CHLORIDE 0.9% 1,000 ML IV ONE (06:41)
[2023-10-23 06:58] VITALS: RESP 16; TEMP 97.7
[2023-10-23] MEDS ORDERED: VERAPAMIL 2.5 MG/ML 2 ML AMP ONE (07:15)
[2023-10-23] MEDS ORDERED: LIDOCAINE 1% INJ 10MG/ML (20 ML MDV) ONE (07:15)
[2023-10-23] MEDS ORDERED: HEPARIN SODIUM 1,000 UN/ML (10ML VL) ONE (07:20)
[2023-10-23] MEDS ORDERED: fentaNYL (PF) 50 MCG/ML 2 ML AMP ONE (07:20)
[2023-10-23] MEDS: MIDAZOLAM 2 MG/2 ML VIAL IVP ONE (07:38)
[2023-10-23] MEDS: fentaNYL (PF) 50 MCG/ML 2 ML AMP IVP ONE (07:38)
[2023-10-23] MEDS: LIDOCAINE 1% INJ 10MG/ML (20 ML MDV) SQ ONE ×2 (07:39)
[2023-10-23] MEDS: VERAPAMIL SYRINGE (5 MG/10 ML) INTRAARTER ONE (07:42)
[2023-10-23] MEDS: HEPARIN SODIUM 1,000 UN/ML (10ML VL) IVP ONE (07:43)
[2023-10-23] MEDS: IOPAMIDOL-370 100ML BTL INJ ONE (07:50)
[2023-10-23] MEDS: HEPARIN SODIUM,PORCINE (1 ML) 2,500 UNIT in SODIUM CHLORIDE 0.9% 250 ML IRRIGATION PRN (07:50)
[2023-10-23] MEDS: HEPARIN SODIUM,PORCINE 10,000 UNIT in SODIUM CHLORIDE 0.9% 1,000 ML IRRIGATION PRN (07:51)
[2023-10-23] MEDS ORDERED: RX INFO: IV CONTRAST WAS GIVEN 1 EACH MISC MISCELLANE PRN (07:55)
--- NOTE | 2023-10-23 07:59 | P.PCN ---
Date of Procedure: 10/23/23 Operative Findings: CARDIAC CATHETERIZATION PERFORMING PHYSICIAN: Roland Jeronimo MD, RPVI PROCEDURE PERFORMED: 1. Selective right and left coronary angiogram 2. Left heart catheterization 3. Ultrasound-guided access of the right radial artery INDICATION: Newly diagnosis cardiomyopathy COMPLICATION: None APPROACH: Right radial artery LEVEL OF SEDATION: Moderate with a sedation length of 13 minutes PROCEDURE DESCRIPTION: After obtaining an informed consent, the patient was brought to cardiac blood bank laboratory technician. Local anesthesia was performed using lidocaine subcutaneously. The right radial artery was cannulated using Seldinger technique, the guidewire passed easily, following that we advanced a 5-[place] sheath dilator assembly, the wire and dilator were removed and sheath was flushed. Following that, 2 mg of verapamil along with 5000 unit heparin were given. Selective right and left coronary angiogram using a 6-[place] JR4 and JL 3.5 catheters. Following that we did left heart catheterization using 6-[place] pigtail catheter. The procedure was completed there was no complication. SELECTIVE CORONARY ANGIOGRAM: The right coronary artery: Large-caliber vessel nondominant vessel appears to be angiographically normal Left main: Is angiographically normal The left circumflex: Large-caliber vessel nondominant vessel appears to be angiographically normal The left anterior descending artery: Large-caliber vessel appears to be angiographically normal as well HEMODYNAMICS: The LVEDP was 16 mmHg with no significant gradient across aortic valve CONCLUSION: 1. Normal coronary angiogram 2. Nonischemic cardiomyopathy 3. Consider an AICD if there is no improvement in the LV function POSTPROCEDURE MANAGEMENT: Maximize medical treatment
[2023-10-23] MEDS ORDERED: SODIUM CHLORIDE 0.9% 1,000 ML IV SCH (08:00)
[2023-10-23 10:59] VITALS: BP 125/69; PULSE 62
== END 2023-10-23 11:24 | disposition home or self-care (01) ==
LOC: CATHCVL 06:16
PROVIDERS: ATTEND Internal Medicine Interventional Cardiology
DX: I42.8 Other cardiomyopathies (principal); I25.10 Atherosclerotic heart disease of native coronary artery without angina pectoris; I10 Essential (primary) hypertension; E78.5 Hyperlipidemia, unspecified; E66.3 Overweight; I65.23 Occlusion and stenosis of bilateral carotid arteries; Z79.899 Other long term (current) drug therapy
CPT/HCPCS: 93458; 99152; C1769; C1894; J2250; J1644 ×3; J2001; J3010; Q9967